=== PATIENT | male | born 1995 | race Hispanic/Latino ===

== ENCOUNTER 2017-05-13 18:03 | Emergency (ER) | payer SELFPAY ==
[2017-05-13 18:12] VITALS: BP 159/98; PULSE 108; RESP 16; TEMP 98; O2SAT 98
[2017-05-13] MEDS ORDERED: DiphenhydrAMINE 50 mg/ml Inj IM STA (20:42)
--- NOTE | 2017-05-13 21:31 | ED PDOC ---
HPI: Psych/Substance Abuse Time Seen by Provider: 05/13/17 18:46 Chief Complaint (Nursing): Substance Abuse Chief Complaint (Provider): possible intoxication ED Caveat: Intoxicated History Per: EMS History/Exam Limitations: intoxication Additional Complaint(s): Pt found wandering in apartment building, not able to report if he lived there or what he was doing there. Admits to drinking, refuses to answer if he has been using drugs. Limited response on questions concerning history. At times somewhat catatonic, other times yelling he needs to leave. Past Medical History Vital Signs: Last Vital Signs Temp 98.0 F 05/13/17 18:10 Pulse 108 H 05/13/17 18:10 Resp 16 05/13/17 18:10 BP 159/98 H 05/13/17 18:10 Pulse Ox 98 05/13/17 18:10 - Medical History PMH: Asthma (as a child) - Family History Family History: States: Unknown Family Hx - Home Medications Home Medications: Ambulatory Orders Medication Instructions Recorded DiphenhydrAMINE [Benadryl] 25 mg PO Q8 PRN #10 cap 11/11/14 Epinephrine [Epipen 2-Dwain 1 mg IJ ONCE PRN #2 ml 11/11/14 Auto-Injector] Prednisone 50 mg PO DAILY #3 tab 11/11/14 Prednisone 20 mg PO DAILY 5 Days tab 03/17/15 - Allergies Allergies/Adverse Reactions: Allergies Allergy/AdvReac Type Severity Reaction Status Date / Time peanut Allergy SWELLING Verified 05/13/17 18:10 Review of Systems Review Of Systems: ROS cannot be obtained secondary to pt's inabilty to answer questions. Physical Exam - Reviewed Nursing Documentation Reviewed: Yes - Physical Exam Appears: Positive for: In Acute Distress (psychosis) Head Exam: Positive for: ATRAUMATIC, NORMOCEPHALIC Skin: Positive for: Warm, Dry Eye Exam: Positive for: EOMI, PERRL (large), Conjunctival injection Neck: Positive for: Painless ROM, Supple Cardiovascular/Chest: Positive for: Tachycardia. Negative for: Murmur Respiratory: Positive for: Normal Breath Sounds. Negative for: Respiratory Distress Gastrointestinal/Abdominal: Positive for: Soft. Negative for: Tenderness Back: Positive for: Normal Inspection. Negative for: Decreased ROM Extremity: Positive for: Normal ROM. Negative for: Deformity Lymphatic: Negative for: Adenopathy Neurologic/Psych: Positive for: Alert, Mood/Affect (agitated and anxious alternating with flat). Negative for: Oriented - ECG O2 Sat by Pulse Oximetry: 98 - Progress ED Course And Treament: Multiple attemtps to leave, pushing guard. Unable to redirect. Pt reporting he would like something for anxiety. Ativan ordered. 830p Brother in ER. Also believes pt is "on something". Concerned about danger to other family members at home (mother and baby sister). Patient still trying to leave. Haldol/Benadryl ordered. Disposition - Disposition
[2017-05-13 21:47] LABS: BASO # 0.1 K/uL (0.0-0.2); BASO % 0.8 % (0.0-2.0); EOS # 0.1 K/uL (0.0-0.7); EOS % 0.8 % (0.0-4.0); LYMPH # 1.6 K/uL (1.0-4.3); LYMPH % 17.6 % (20.0-40.0); MEAN CELL VOLUME 92.4 fl (80.0-94.0); MEAN CORPUSCULAR HEMOGLOBIN 30.1 pg (27.0-31.0); MEAN CORPUSCULAR HGB CONC 32.6 g/dL (33.0-37.0); MONO # 0.6 K/uL (0.0-0.8); MONO % 6.3 % (0.0-10.0); NEUT # 6.7 K/uL (1.8-7.0); NEUT % 74.5 % (50.0-75.0); NRBC % 0.2 % (0.0-0.0); RED CELL DISTRIBUTION WIDTH 12.9 % (11.5-14.5); WHITE BLOOD COUNT 8.9 K/uL (4.8-10.8)
[2017-05-13 22:00] LABS: ALCOHOL SERUM < 10 mg/dl (0-10); BLOOD UREA NITROGEN 15 mg/dl (9-20); CALCIUM 10.1 mg/dL (8.4-10.2); CARBON DIOXIDE 29 mmol/L (22-30); CHLORIDE 107 mmol/L (98-107); GFR AFRICAN-AMERICAN > 60; GLUCOSE,RANDOM 98 mg/dL (75-110); POTASSIUM 4.7 MMOL/L (3.6-5.0); SODIUM 143 mmol/l (132-148)
== END 2017-05-13 23:31 | disposition home or self-care (01) ==
LOC: H.ER 18:03
DX: F10.129 Alcohol abuse with intoxication, unspecified (principal); J45.909 Unspecified asthma, uncomplicated
CPT/HCPCS: 80048; 82948; 85025; 96372; 99283; G0480; J2060

== ENCOUNTER 2017-07-06 16:39 | Emergency (ER) | payer SELFPAY ==
[2017-07-06 16:45] VITALS: BP 129/89; PULSE 74; RESP 18; TEMP 98.8; O2SAT 99
--- NOTE | 2017-07-06 18:34 | ED PDOC ---
HPI: Psych/Substance Abuse Time Seen by Provider: 07/06/17 17:04 Chief Complaint (Nursing): Altered Mental Status Chief Complaint (Provider): Altered Mental Status ED Caveat: Altered Mental Status History Per: EMS, Other (off-duty police investigator) History/Exam Limitations: clinical condition (AMS) Onset/Duration Of Symptoms: Mins (prior to arrival) Current Symptoms Are (Timing): Still Present Additional Complaint(s): 20 year old male who presents to the emergency department via EMS for an evaluation of altered mental status after patient was found on the ground by an off-duty police investigator prior to arrival. Unable to obtain medical history due to uncooperativeness, agitation and refusal to answer questions. PMD: none provided Past Medical History Reviewed: Nursing Documentation, Vital Signs, Unable To Obtain (uncooperative) Vital Signs: Last Vital Signs Temp 98.8 F 07/06/17 16:43 Pulse 74 07/06/17 16:43 Resp 18 07/06/17 16:43 BP 129/89 H 07/06/17 16:43 Pulse Ox 99 07/06/17 16:43 - Family History Family History: States: Unknown Family Hx - Allergies Allergies/Adverse Reactions: Allergies Allergy/AdvReac Type Severity Reaction Status Date / Time Unobtainable Allergy Verified 07/06/17 16:43 Review of Systems Review Of Systems: ROS cannot be obtained secondary to pt's inabilty to answer questions. (uncooperative and agitated) Physical Exam - Reviewed Nursing Documentation Reviewed: Yes Vital Signs Reviewed: Yes - Physical Exam Head Exam: Positive for: ATRAUMATIC, NORMAL INSPECTION, NORMOCEPHALIC Neurologic/Psych: Positive for: Alert, Mood/Affect (uncooperative and agitated) , Other (refusing to answer questions). Negative for: Oriented - Laboratory Results Result Diagrams: 07/06/17 19:25 07/06/17 19:25 - ECG O2 Sat by Pulse Oximetry: 99 (RA) Pulse Ox Interpretation: Normal Medical Decision Making Medical Decision Making: Initial Impression: Altered mental status Initial Plan: * CT head without contrast * Alcohol serum * CMP * Drug screen, urine * Urine dipstick * CBC * Accu-check * UA Time: 1709 --Patient remains uncooperative during exam and attempted to elope ED. Restraints, Ativan 2mg IM and Haldol 5mg IM ordered safety of staff and patient. 21:10 Pt cleared by Crisis, dx substance abuse. Scribe Attestation: Documented by Juanita Roa, acting as a scribe for Nisreen Ramsey MD. Provider Scribe Attestation: All medical record entries made by the Scribe were at my direction and personally dictated by me. I have reviewed the chart and agree that the record accurately reflects my personal performance of the history, physical exam, medical decision making, and the department course for this patient. I have also personally directed, reviewed, and agree with the discharge instructions and disposition. Disposition - Disposition Forms: [employer] ([place])
[2017-07-06 19:48] LABS: BASO # 0.1 K/uL (0.0-0.2); BASO % 1.3 % (0.0-2.0); EOS # 0.3 K/uL (0.0-0.7); EOS % 3.3 % (0.0-4.0); HEMOGLOBIN 14.5 g/dL (12.0-18.0); LYMPH # 1.8 K/uL (1.0-4.3); LYMPH % 21.1 % (20.0-40.0); MEAN CELL VOLUME 91.7 fl (80.0-94.0); MEAN CORPUSCULAR HEMOGLOBIN 30.5 pg (27.0-31.0); MEAN CORPUSCULAR HGB CONC 33.3 g/dL (33.0-37.0); MEAN PLATELET VOLUME 8.1 fl (7.2-11.7); MONO # 0.5 K/uL (0.0-0.8); MONO % 5.7 % (0.0-10.0); NEUT # 5.9 K/uL (1.8-7.0); NEUT % 68.6 % (50.0-75.0); NRBC % 0.1 % (0.0-0.0); RBC 4.75 Mil/uL (4.40-5.90); WHITE BLOOD COUNT 8.6 K/uL (4.8-10.8)
[2017-07-06 19:53] LABS: ALB/GLOB RATIO 1.4 (1.0-2.1); ALBUMIN 4.5 g/dL (3.5-5.0); ALT/SGPT 27 U/L (21-72); AST/SGOT 30 U/L (17-59); BLOOD UREA NITROGEN 12 mg/dl (9-20); CALCIUM 9.8 mg/dL (8.4-10.2); GFR AFRICAN-AMERICAN > 60; GFR NON-AFRICAN AMERICAN > 60
[2017-07-06 21:24] LABS: URINE BILIRUBIN NEGATIVE (NEGATIVE); URINE BLOOD NEGATIVE (NEGATIVE); URINE CLARITY CLEAR (Clear); URINE COLOR STRAW (YELLOW); URINE GLUCOSE (UA) NEG (Normal); URINE LEUKOCYTE ESTERASE NEG Leu/uL (Negative); URINE NITRATE NEGATIVE (NEGATIVE); URINE PROTEIN NEGATIVE (NEGATIVE); URINE UROBILINOGEN 0.2-1.0 mg/dL (0.2-1.0)
[2017-07-06 21:34] LABS: BARBITURATES, UR NEGATIVE (NEGATIVE); OPIATES, UR NEGATIVE (NEGATIVE)
[2017-07-06 21:43] LABS: BENZODIAZEPINES, UR POSITIVE (NEGATIVE); PHENCYCLIDINE, UR POSITIVE (NEGATIVE)
[2017-07-06 22:29] LABS: SQUAMOUS EPITHIAL 1 /hpf (0-5)
== END 2017-07-06 22:37 | disposition home or self-care (01) ==
LOC: MERGE 16:39 → H.ER 16:39
DX: R41.82 Altered mental status, unspecified (principal)
CPT/HCPCS: 80053; 81003; 82948; 85025; 96372; 99284; G0480; J1630; J2060

== ENCOUNTER 2017-11-14 16:34 | Emergency (ER) | payer SELFPAY ==
--- NOTE | 2017-11-14 16:59 | ED PDOC ---
HPI: Psych/Substance Abuse Time Seen by Provider: 11/14/17 16:46 Chief Complaint (Nursing): Substance Abuse Chief Complaint (Provider): drug intoxication Onset/Duration Of Symptoms: Other (just prior to arrival) Current Symptoms Are (Timing): Still Present Additional Complaint(s): BIB [facility] after being found lying on ground, aroused with great difficulty, slow to answer questions and with unsteady gait. pt admits to drug use, PCP and marijuana. Denies alcohol Denies homicidal or suicidal ideations Denies auditory or visual hallucinations. Pt reports he feels sleepy, but otherwise feels fine. Requesting to go home. PMD None Past Medical History Reviewed: Historical Data, Nursing Documentation, Vital Signs Vital Signs: Last Vital Signs Temp Pulse 96 H 11/14/17 16:37 Resp 18 11/14/17 16:37 BP 126/90 11/14/17 16:37 Pulse Ox 99 11/14/17 16:37 - Medical History PMH: Asthma (as a child) - Family History Family History: States: Unknown Family Hx - Social History Current smoker - smoking cessation education provided: Yes Alcohol: Occasional Drugs: Cannabis, Other (PCP) - Home Medications Home Medications: Ambulatory Orders Medication Instructions Recorded DiphenhydrAMINE [Benadryl] 25 mg PO Q8 PRN #10 cap 11/11/14 Epinephrine [Epipen 2-Dwain 1 mg IJ ONCE PRN #2 ml 11/11/14 Auto-Injector] Prednisone 50 mg PO DAILY #3 tab 11/11/14 Prednisone 20 mg PO DAILY 5 Days tab 03/17/15 - Allergies Allergies/Adverse Reactions: Allergies Allergy/AdvReac Type Severity Reaction Status Date / Time peanut Allergy SWELLING Verified 05/13/17 18:10 Review of Systems ROS Statement: Except As Marked, All Systems Reviewed And Found Negative (and as per HPI) Constitutional: Positive for: Weakness, Malaise Neurological: Negative for: Weakness (focal), Numbness, Headache Psych: Negative for: Anxiety, Depression, Psychosis, Suicidal ideation Physical Exam - Reviewed Nursing Documentation Reviewed: Yes Vital Signs Reviewed: Yes - Physical Exam Appears: Positive for: Non-toxic, No Acute Distress (but tired appearing) Head Exam: Positive for: ATRAUMATIC Skin: Positive for: Warm, Dry Eye Exam: Positive for: EOMI, PERRL, Conjunctival injection ENT: Negative for: Pharyngeal Erythema, Tonsillar Exudate Neck: Positive for: Painless ROM, Supple Cardiovascular/Chest: Positive for: Regular Rate, Rhythm, Chest Non Tender. Negative for: Murmur Respiratory: Positive for: Normal Breath Sounds. Negative for: Wheezing Gastrointestinal/Abdominal: Positive for: Soft. Negative for: Tenderness Back: Positive for: Normal Inspection. Negative for: Decreased ROM Extremity: Positive for: Normal ROM. Negative for: Deformity Lymphatic: Negative for: Normal Exam Neurologic/Psych: Positive for: Alert, Oriented (x3), Mood/Affect (normal mood, flat affect), Gait (slow but steady). Negative for: Motor/Sensory Deficits - ECG O2 Sat by Pulse Oximetry: 99 - Progress ED Course And Treament: pt becoming more alert and awake in ER. Gait improved. Mother in ER to accompany patient home Disposition - Clinical Impression Clinical Impression: Polysubstance abuse Counseled Patient/Family Regarding: Studies Performed, Diagnosis - Disposition Referrals: [facility] [Outside] Disposition: Routine/Home Disposition Time: 17:15 Condition: IMPROVED Instructions: Polysubstance Abuse
[2017-11-14 17:21] VITALS: BP 114/68; PULSE 88; RESP 16; TEMP 98.2; O2SAT 100
== END 2017-11-14 17:10 | disposition home or self-care (01) ==
LOC: H.ER 16:34
DX: F19.10 Other psychoactive substance abuse, uncomplicated (principal)

== ENCOUNTER 2018-01-25 03:56 | Emergency (ER) | payer SELFPAY ==
[2018-01-25 04:07] VITALS: BP 107/74; PULSE 100; RESP 18; TEMP 98.6; O2SAT 99
--- NOTE | 2018-01-25 04:42 | ED PDOC ---
Upper Extremity Pain/Injury Chief Complaint (Provider): left wrist pain History Per: Patient History/Exam Limitations: no limitations Onset/Duration Of Symptoms: Days (1) Current Symptoms Are (Timing): Still Present Additional Complaint(s): 22 y/o male presents for evaluation of left wrist pain x 1 day. Patient states he injured wrist 1 week ago while playing basketball, states he fell to ground with hands spread out in front of him. Patient states pain was improving until last night when helping his mother carry heavy groceries up the stairs. Denies numbness/weakness left upper extremity, limitation of movement. <Kassandra Carlos - Last Filed: 01/25/18 05:07> <Migel Payne - Last Filed: 01/26/18 04:22> Time Seen by Provider: 01/25/18 04:06 Chief Complaint (Nursing): Finger,Hand,&Wrist Past Medical History Reviewed: Historical Data, Nursing Documentation, Vital Signs Vital Signs: Last Vital Signs Temp 98.6 F 01/25/18 04:05 Pulse 100 H 01/25/18 04:05 Resp 18 01/25/18 04:05 BP 107/74 01/25/18 04:05 Pulse Ox 99 01/25/18 04:05 - Medical History PMH: Asthma (as a child) - Family History Family History: States: Unknown Family Hx <Kassandra Carlos - Last Filed: 01/25/18 05:07> Vital Signs: Last Vital Signs Temp 98.6 F 01/25/18 04:05 Pulse 100 H 01/25/18 04:05 Resp 18 01/25/18 04:05 BP 107/74 01/25/18 04:05 Pulse Ox 99 01/25/18 05:15 <Migel Payne - Last Filed: 01/26/18 04:22> - Home Medications Home Medications: Ambulatory Orders Medication Instructions Recorded DiphenhydrAMINE [Benadryl] 25 mg PO Q8 PRN #10 cap 11/11/14 Epinephrine [Epipen 2-Dwain 1 mg IJ ONCE PRN #2 ml 11/11/14 Auto-Injector] Prednisone 50 mg PO DAILY #3 tab 11/11/14 Prednisone 20 mg PO DAILY 5 Days tab 03/17/15 Ibuprofen [Motrin Tab] 1 tab PO Q6 PRN #20 tab 01/25/18 - Allergies Allergies/Adverse Reactions: Allergies Allergy/AdvReac Type Severity Reaction Status Date / Time peanut Allergy RASH Verified 01/25/18 04:04 Review of Systems ROS Statement: Except As Marked, All Systems Reviewed And Found Negative Musculoskeletal: Positive for: Hand Pain (left wrist) <Kassandra Carlos - Last Filed: 01/25/18 05:07> Physical Exam - Reviewed Nursing Documentation Reviewed: Yes Vital Signs Reviewed: Yes - Physical Exam Appears: Positive for: Well, Non-toxic, No Acute Distress Pulses-Dorsalis Pedis (L): 2+ Pulses-Dorsalis Pedis (R): 2+ Extremity: Positive for: Tenderness (diffuse volar left wrist. +snuff box tenderness. Limited ROM flexion/extension secondary to pain; no swelling, deformity noted), Capillary Refill (<2 sec b/l UE) Neurologic/Psych: Negative for: Motor/Sensory Deficits <Kassandra Carlos - Last Filed: 01/25/18 05:07> - ECG O2 Sat by Pulse Oximetry: 99 - Other Rad xray left wrist X-Ray: Viewed By Dc X-Ray Interpretation: +scaphoid fx - Progress ED Course And Treament: xray left hand, ibuprofen Patient educated on findings, thumb spica immobilizer applied. ADvised RICE Rx ibuprofen provided Follow up hand specialist Return precautions given Patient demonstrates full understanding of discharge instructions Patient requires no further intervention in ED and is stable for discharge at this time. <Kassandra Carlos - Last Filed: 01/25/18 05:07> Disposition - Patient ED Disposition Is Patient to be Admitted: No Counseled Patient/Family Regarding: Studies Performed, Diagnosis, Need For Followup, Rx Given - Disposition Disposition: Routine/Home Disposition Time: 05:08 <Kassandra Carlos - Last Filed: 01/25/18 05:07> <Migel Payne - Last Filed: 01/26/18 04:22> - Clinical Impression Clinical Impression: Scaphoid fracture of wrist - Disposition Referrals: Sophia Cruz MD [Staff Provider] - [facility] [place] [Outside] [facility] [place] [Outside] [facility] [Outside] Condition: IMPROVED Prescriptions: Ibuprofen [Motrin Tab] 1 tab PO Q6 PRN #20 tab PRN Reason: Pain, Moderate (4-7) Instructions: Wrist Fracture (DC)
--- NOTE | 2018-01-25 09:23 | RAD ---
Date of service: 01/25/2018 PROCEDURE: Right Wrist Radiographs. HISTORY: injured 1 week ago, reinjured today COMPARISON: None. FINDINGS: BONES: Normal. No fracture. JOINTS: Normal. No dislocation. SOFT TISSUES: Normal. OTHER FINDINGS: None. IMPRESSION: Normal right wrist radiographs.
== END 2018-01-25 05:30 | disposition home or self-care (01) ==
LOC: H.ER 03:56
DX: S62.002A Unspecified fracture of navicular [scaphoid] bone of left wrist, initial encounter for closed fracture (principal); W19.XXXA Unspecified fall, initial encounter; Y92.310 Basketball court as the place of occurrence of the external cause